=== PATIENT | male | born 1980 | race Caucasian/White ===

== ENCOUNTER 2018-11-04 01:40 | Emergency (ER) | payer OTHER ==
[~2018-11-04] VITALS: Ht 182.9 cm; Wt 113.6 kg
[2018-11-04 01:46] VITALS: TEMP 97.6
[2018-11-04] MEDS ORDERED: LEVOXYL0.1 MG PO (02:23)
[2018-11-04] MEDS ORDERED: DESYREL DIVIDO150 M1 PO (02:24)
[2018-11-04 03:34] VITALS: BP 124/77; PULSE 78
== END 2018-11-04 03:43 | disposition home or self-care (01) ==
LOC: COL.ER 01:40
DX: T43.215A Adverse effect of selective serotonin and norepinephrine reuptake inhibitors, initial encounter (principal); I10 Essential (primary) hypertension; R00.2 Palpitations; F41.9 Anxiety disorder, unspecified; F32.9 Major depressive disorder, single episode, unspecified; G47.00 Insomnia, unspecified

== ENCOUNTER 2022-05-19 23:45 | Emergency (ER) | payer OTHER ==
[~2022-05-19] VITALS: Ht 182.9 cm; Wt 115.9 kg
[~2022-05-19 23:45] MED LIST: DESYREL DIVIDO150 M1 PO; LEVOXYL0.1 MG PO
[2022-05-19 23:51] VITALS: BP 154/92; TEMP 98.1
[2022-05-20] MEDS ORDERED: DOXYCYCLINE 10100 MG PO (00:07)
[2022-05-20 00:19] VITALS: PULSE 91
== END 2022-05-20 00:19 | disposition home or self-care (01) ==
LOC: COL.ER 23:45
DX: J01.90 Acute sinusitis, unspecified (principal); H69.82 Other specified disorders of Eustachian tube, left ear